=== PATIENT | male | born 1975 | race Caucasian/White ===

== ENCOUNTER → 2016-11-06 | Outpatient (CLI) | payer MEDICARE, OTHER ==
[~2016-11-06] MED LIST: ALPRAZOLAM; AMOXICILLIN 50500 MG PO; ANTIVERT 25MG25 MG PO; ASACOL400 MG PO; BUDEPRION SR150 M1 PO; BUPROPION300 MG PO; CIPRO 500MG TA500 MG PO; DEPAKOTE ER 50500 MG PO; DESYREL 50MG50 MG PO; ENTOCORT EC3 MG PO; GLUCOPHAGE500 MG/TAB PO; IMITREX50 MG PO; IMODIUM 2MG CAPS2 MG PO; INDERAL PO; INDERAL80 MG PO; KETOROLAC10 MG PO; KLONOPIN 0.5MG0.5 MG PO; KLONOPIN PO; KLOR-CON 1010 MEQ PO; LAMISIL250 MG PO; LIPITOR20 MG PO; LOPERAMIDE HCL2 MG PO; MINIPRESS2 MG PO; NO HOME MEDICATIONS; PREDNISONE10 MG PO; PRILOSEC 20MG20 MG PO; SIMVASTATIN20 MG PO; TOPAMAX50 MG PO; TRAZADONE HYDR100 MG PO; VIAGRA 25MG TAB25 MG PO; ZITHROMAX Z PA250 MG PO; ZOLOFT 100MG100 MG PO; ZYPREXA2.5 MG PO; [UNRECOGNIZED DRUG - OTHER]
== END ==
LOC: BHSO 10:23
DX: F41.1 Generalized anxiety disorder (principal)

== ENCOUNTER → 2016-12-19 | Outpatient (CLI) | payer MEDICARE, OTHER | LOC: BHSO 09:08 | DX: F43.10 Post-traumatic stress disorder, unspecified (principal) ==

== ENCOUNTER → 2017-06-07 | Outpatient (CLI) | payer MEDICARE, OTHER | LOC: BHSO 14:38 | DX: F41.1 Generalized anxiety disorder (principal) ==

== ENCOUNTER → 2017-08-07 | Outpatient (CLI) | payer MEDICARE, OTHER | LOC: BHSO 10:29 | DX: F41.1 Generalized anxiety disorder (principal) | CPT/HCPCS: G0463 ==

== ENCOUNTER → 2017-10-30 | Outpatient (CLI) | payer MEDICARE, OTHER ==
[~2017-10-30] MED LIST changes: +CEFTIN500 MG PO; +FLOVENT DI50 MCG/Act IH; +NUEDEXTA 20 MG-1 CAP PO; +PROAIR HFA0.09 MG/AC IH; +ZITHROMAX500 M2 PO
== END ==
LOC: BHSO 09:39
DX: F43.10 Post-traumatic stress disorder, unspecified (principal)
CPT/HCPCS: G0463

== ENCOUNTER → 2018-08-05 | Outpatient (CLI) | payer MEDICARE, OTHER | LOC: BHSO 08:55 | DX: F43.10 Post-traumatic stress disorder, unspecified (principal) | CPT/HCPCS: G0463 ==

== ENCOUNTER 2018-08-17 05:50 | Emergency (ER) | payer MEDICARE, OTHER ==
[~2018-08-17] VITALS: Ht 188 cm; Wt 138.6 kg
[2018-08-17 06:05] VITALS: BP 143/83; TEMP 97.9
[2018-08-17] MEDS ORDERED: ZYLOPRIM 100MG100 MG PO (06:20)
[2018-08-17] MEDS ORDERED: NAPROSYN500 MG PO (06:21)
[2018-08-17] MEDS ORDERED: PREDNISONE20 MG PO (06:54)
[2018-08-17 07:08] VITALS: PULSE 75
== END 2018-08-17 07:09 | disposition home or self-care (01) ==
LOC: COL.ER 05:50
DX: M79.675 Pain in left toe(s) (principal); R22.42 Localized swelling, mass and lump, left lower limb; M10.9 Gout, unspecified; F17.220 Nicotine dependence, chewing tobacco, uncomplicated
CPT/HCPCS: J7512

== ENCOUNTER → 2019-02-20 | Outpatient (CLI) | payer OTHER ==
[~2019-02-20] MED LIST changes: +NAPROSYN500 MG PO; +PREDNISONE20 MG PO; +ZYLOPRIM 100MG100 MG PO
== END ==
LOC: COL.RAD 12:30
DX: M25.521 Pain in right elbow (principal)